=== PATIENT | female | born 1980 | race American Indian/Alaskan Native ===

== ENCOUNTER 2020-02-21 13:35 | Outpatient (CLI) | payer OTHER ==
--- NOTE | 2020-02-21 18:49 | Ultrasound Report ---
ULTRASOUND PELVIS INDICATION: HORMONE IMBALANCE. TECHNIQUE: Transabdominal and Transvaginal. Duplex Color Doppler used: Yes. COMPARISON: None available FINDINGS: Uterus: Present. Size: 11.6 x 5.3 x 7.6 cm. Endometrial complex: Thickened measuring 18 mm. Mass lesions: 1.5 x 1.3 x 1.6 cm cervical nabothian cyst. Additional findings: None. Right Ovary -- Normal. Measures 2.5 x 1.4 x 2.2 cm Blood flow: Normal. Cyst or mass: None. Left Ovary-- Normal. Measures 2.6 x 3.1 x 3.3 cm Blood flow: Normal. Cyst or mass: None. Urinary Bladder: Normal. Free Fluid: None. Additional Findings: None. IMPRESSION: 1. Thickened endometrial stripe. Please correlate with LMP. 2. Small 1.5 cm cervical nabothian cyst. 3. Otherwise negative pelvic ultrasound Signer Name: Ramiro Crane MD Signed: 02/21/2020 6:45 PM Workstation Name: [id number]
== END 2020-02-21 13:36 | disposition home or self-care (01) ==
LOC: US 13:35
PROVIDERS: ATTEND Obstetrics & Gynecology Gynecology
DX: N88.8 Other specified noninflammatory disorders of cervix uteri (principal); R93.89 Abnormal findings on diagnostic imaging of other specified body structures
CPT/HCPCS: 76830; 76856